=== PATIENT | female | born 1950 | race Native Hawaiian/Other Pacific Islander ===

== ENCOUNTER 2020-11-12 16:18 | Outpatient (CLI) | payer OTHER ==
[~2020-11-12] VITALS: Ht 162.6 cm; Wt 70.8 kg
[2020-11-12 17:07] LABS: PLATELET COUNT 206 K/uL (152-353)
[2020-11-12 17:12] LABS: POTASSIUM 4.1 mmol/L (3.6-5.2)
[2020-11-12 17:30] VITALS: BP 138/54; TEMP 98.5
== END 2020-11-12 20:01 | disposition home or self-care (01) ==
LOC: INF 16:18
PROVIDERS: ATTEND Internal Medicine
DX: U07.1 COVID-19 (principal); I10 Essential (primary) hypertension
CPT/HCPCS: 36591; 80053; 85027; 96365; Q0239